=== PATIENT | male | born 1980 | race Caucasian/White ===

== ENCOUNTER 2021-11-20 17:20 | Emergency (ER) | payer SELFPAY ==
[~2021-11-20] VITALS: Ht 172.7 cm; Wt 82.0 kg
[2021-11-20 17:21] VITALS: BP 176/80
[2021-11-20] MEDS ORDERED: ONDANSETRON 4MG ODT PO ONE (18:15)
[2021-11-20] MEDS ORDERED: MAGNESIUM/ALUMINUM HYDROXIDE/SIMETHICONE 30ML UDC PO ONE (18:15)
[2021-11-20] MEDS ORDERED: PANTOPRAZOLE 40MG DR TABLET PO ONE (18:15)
[2021-11-20 18:36] LABS: BASOPHILS % 0.4 % (0.0-2.0); EOSINOPHILS % 0.3 % (0.0-5.0); HEMATOCRIT. 46.3 % (42.0-52.0); HEMOGLOBIN. 16.2 g/dL (14.0-18.0); LYMPHOCYTES % 20.9 % (20.0-50.0); MEAN CORPUSCULAR VOLUME 88.7 fL (80.0-94.0); MEAN PLATELET VOLUME 9.1 fl (7.4-10.4); MONOCYTES % 8.6 % (2.0-8.0); NEUTROPHILS % 69.8 % (40.0-76.0); PLATELET 140 x1000/uL (130-400); RED BLOOD CELL COUNT 5.21 mill/uL (4.7-6.1); RED CELL DISTRIBUTION WIDTH 13.7 % (11.6-14.6)
[2021-11-20 18:49] LABS: CHLORIDE 98 mEq/L (98-107)
[2021-11-20] MEDS ORDERED: VISCOUS LIDOCAINE 2% 15 ML UDC MM ONE (19:30)
[2021-11-20] MEDS ORDERED: PROCHLORPERAZINE MALEATE 10MG TABLET PO ONE (19:30)
[2021-11-20 21:06] LABS: CLARITY URINE CLEAR (CLEAR); COLOR URINE DARK YELLOW (YELLOW); KETONES URINE NEGATIVE (NEGATIVE); LEUKOCYTE ESTERASE URINE NEGATIVE (NEGATIVE); NITRITE URINE NEGATIVE (NEGATIVE); OCCULT BLOOD URINE NEGATIVE (NEGATIVE); PROTEIN URINE NEGATIVE (NEGATIVE); SPECIFIC GRAVITY URINE 1.014 (1.005-1.030)
[2021-11-20 21:08] LABS: *AMPHETAMINES SCREEN URINE NEGATIVE (NEGATIVE); *BARBITURATES SCREEN URINE NEGATIVE (NEGATIVE); *BENZODIAZEPINES SCREEN URINE NEGATIVE (NEGATIVE); *COCAINE SCREEN URINE NEGATIVE (NEGATIVE); CANNABINOID URINE SCREEN NEGATIVE (NEGATIVE); METHADONE URINE SCREEN NEGATIVE (NEGATIVE); OPIATES URINE SCREEN NEGATIVE (NEGATIVE); PHENCYCLIDINE URINE SCREEN NEGATIVE (NEGATIVE)
[2021-11-20] MEDS ORDERED: PROC5TAB55 MT (22:59)
== END 2021-11-20 23:16 | disposition home or self-care (01) ==
LOC: ER 17:20
DX: K70.10 Alcoholic hepatitis without ascites (principal); I10 Essential (primary) hypertension; R10.13 Epigastric pain; R06.6 Hiccough; F17.290 Nicotine dependence, other tobacco product, uncomplicated
CPT/HCPCS: 36415; 71045; 74176; 76700; 80053; 80305; 81003; 82248; 83690; 84484; 85025; 99285; Q0162; Q0164